=== PATIENT | male | born 1945 | race Caucasian/White ===

== ENCOUNTER → 2016-09-25 | Outpatient (CLI) | payer OTHER ==
[~2016-09-25] MED LIST: ASPI81TA28 PO; CARV3.122 PO; CLOP1TAB15 PO; DICL-201 PO; GABA-113 PO; GLIP-199 PO; LISI20TA3 PO; METF-383 PO; MULT-506 PO; PARO1TAB27 PO; RXC5 PO
== END | disposition home or self-care (01) ==
LOC: C.CTS 09:43
PROVIDERS: ATTEND Orthopaedic Surgery
DX: M19.011 Primary osteoarthritis, right shoulder (principal)

== ENCOUNTER 2016-10-25 06:05 | Inpatient (IN) | payer OTHER ==
--- NOTE | 2016-09-25 11:22 | PAT Medication Instructions ---
Service Date Sep 25, 2016. Current Home Medication List Aspirin (Aspirin Ec), 81 MG PO BID Carvedilol (Coreg), 3.125 MG PO QAM Clopidogrel (Plavix), 75 MG PO DAILY Diclofenac (Voltaren), 75 MG PO BID Gabapentin (Neurontin), 300 MG PO BID Glipizide (Glipizide Er), 1 TAB PO BID Lisinopril (Prinivil), 20 MG PO QAM Metformin Hcl (Glucophage), 850 MG PO BID Multivitamin (Multivitamin), 1 TAB PO QAM Paroxetine (Paxil), 20 MG PO QAM Medication Instructions For Your Scheduled Surgery - Check with surgeon for instructions: Diclofenac (Voltaren), 75 MG PO BID - Check with surgeon/prescribing physician for instructions: Clopidogrel (Plavix), 75 MG PO DAILY (check with vascular physician) Aspirin (Aspirin Ec), 81 MG PO BID - Hold the following medications 48 hours prior to surgery: Metformin Hcl (Glucophage), 850 MG PO BID - Hold the following medications the morning of surgery: Multivitamin (Multivitamin), 1 TAB PO QAM Glipizide (Glipizide Er), 1 TAB PO BID Lisinopril (Prinivil), 20 MG PO QAM - Take the following medications the morning of surgery with a sip of water: Paroxetine (Paxil), 20 MG PO QAM Gabapentin (Neurontin), 300 MG PO BID Carvedilol (Coreg), 3.125 MG PO QAM - Take the following medications as scheduled the night before surgery: Glipizide (Glipizide Er), 1 TAB PO BID Gabapentin (Neurontin), 300 MG PO BID If you have any questions please call us at [phone] (Jeanette Lawson PA-C) or [phone] or [phone]
--- NOTE | 2016-09-25 11:58 | DIAGNOSTIC IMAGING REPORT ---
CHEST PREADMISSION(PA/LAT) CLINICAL HISTORY: Preoperative evaluation. COMPARISON STUDY: No previous studies for comparison. FINDINGS: Lung volumes are normal. There is no pneumothorax or pleural effusion. Pulmonary vascularity is normal. No consolidation is identified. Cardiomediastinal silhouette is unremarkable. There may be a healed fracture of the anterior right second rib. There is chronic deformity of the mid shaft of the right clavicle. IMPRESSION: No acute cardiopulmonary findings. Electronically signed by: Jamie Conroy M.D. 09/25/2016 11:56 AM Dictated Date/Time: 09/25/2016 11:56 AM
[2016-09-25 13:03] LABS: URINE APPEARANCE CLEAR (CLEAR); URINE BILIRUBIN NEG (NEG); URINE COLOR YELLOW; URINE NITRITE NEG (NEG); URINE SPECIFIC GRAVITY 1.022 (1.000-1.030); UROBILINOGEN NEG (NEG)
[2016-09-25 13:14] LABS: CREATININE 1.3 mg/dl (0.60-1.40); PROTHROMBIN TIME (PATIENT) 10.4 SECONDS (9.0-12.0)
[2016-09-25 13:15] LABS: BUN/CREATININE RATIO 25.9 (10-20); CALCIUM 9.3 mg/dl (8.5-10.1)
[2016-09-25 13:18] LABS: MANUAL MICROSCOPIC REQUIRED? NO; REVIEW REQ? NO
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
[~2016-10-25] VITALS: Ht 182.9 cm; Wt 100.8 kg
[2016-10-25] VITALS (8 sets, daily range): BP systolic 93–174; BP diastolic 63–90; PULSE 73–91; TEMP 36.3–36.8; O2SAT 92–96; Ht 182.9 cm; Wt 100.8 kg
[~2016-10-25 06:05] MED LIST changes: +ACETAMINOPHEN 500 MG TAB PO SCH; +CEFAZOLIN 2000 MG/60 ML D5W 60 ML IV SCH; +FAMOTIDINE 20 MG TAB PO SCH; +GABAPENTIN 300 MG CAP PO SCH; +INSULIN REGULAR 6 UNITS in SYRINGE 5.94 ML IV SCH; +LACTATED RINGER'S 1000ML 1,000 ML IV SCH; +LACTATED RINGER'S 500 ML IV SCH; +ROPIVACAINE 5MG/ML 30 ML 150 MG, BUPIVACAINE/EPINEPHR 0.5% MPF 30 ML, KETOROLAC TROMETH... INFIL SCH; -RXC5 PO
--- NOTE | 2016-10-25 06:31 | History & Physical Bridge Note ---
H&P Re-Evaluation Bridge Note: I have examined the patient, reviewed the History & Physical and in the interval since the performance of the History & Physical I have noted the following changes of clinical significance: No changes noted
[2016-10-25] MEDS ORDERED: BUPIVACAINE 0.25% 30 ML VIAL ONE (06:36)
[2016-10-25] MEDS ORDERED: FENTANYL CITRATE INJ 50 MCG/1 ML 2 ML VIAL ONE (07:05)
[2016-10-25] MEDS ORDERED: MIDAZOLAM HCL 1 MG/ML 2ML VIAL ONE (07:05)
[2016-10-25] MEDS ORDERED: DEXAMETHASONE SOD INJ 4 MG/ML VIAL ONE (07:06)
[2016-10-25] MEDS ORDERED: ONDANSETRON INJ 2 MG/ML 2 ML VIAL ONE (07:06)
[2016-10-25] MEDS ORDERED: ROCURONIUM BROMIDE 10 MG/ML 5 ML VIAL ONE ×2 (07:06→08:55)
[2016-10-25] MEDS ORDERED: ETOMIDATE 2 MG/ML 20 ML VIAL IV ONE (07:06)
[2016-10-25] MEDS ORDERED: LIDOCAINE HCL 2% 2 ML VIAL (20MG/ML) ONE (07:06)
[2016-10-25] MEDS ORDERED: PROPOFOL IV EMULSION 10 MG/ML 20 ML VIAL IV ONE (07:06)
[2016-10-25] MEDS ORDERED: NURSING VERBAL MED ORDER ONE (07:15)
[2016-10-25] MEDS ORDERED: NovoLIN-R INSULIN PER UNIT CHARGE ONE (07:15)
[2016-10-25] MEDS ORDERED: BUPIVACAINE/EPINEPHRINE 0.5% MPF 1:200,000 30 ML VIAL ONE (07:45)
[2016-10-25] MEDS ORDERED: BACITRACIN 50000 UNIT VIAL ONE (07:45)
[2016-10-25] MEDS ORDERED: ORTHO JOINT ANESTHETIC ONE (07:50)
[2016-10-25] MEDS ORDERED: EpHEDrine SULFATE INJ 50 MG/ML AMP ONE (08:36)
[2016-10-25] MEDS ORDERED: EpHEDrine SULFATE INJ 50 MG/ML AMP IV PRN ×2 (08:45)
[2016-10-25] MEDS ORDERED: HYDROmorphone INJ 2 MG/ML SYR/VIAL IV PRN (08:45)
[2016-10-25] MEDS ORDERED: PHENYLEPHRINE 100MCG/ML 5ML SYR IV PRN (08:45)
[2016-10-25] MEDS ORDERED: ATROPINE SULFATE 0.1 MG/ML 5ML SYR IV PRN ×2 (08:45)
[2016-10-25] MEDS ORDERED: ONDANSETRON INJ 2 MG/ML 2 ML VIAL IV PRN ×2 (08:45→10:00)
[2016-10-25] MEDS ORDERED: NEOSTIGMINE METHYLSULFATE 5 MG/5 ML SYR ONE (09:31)
[2016-10-25] MEDS ORDERED: GLYCOPYRROLATE INJ 0.2 MG/ML VIAL ONE (09:31)
--- NOTE | 2016-10-25 09:54 | [facility] Post Operative Brief Note ---
Immediate Operative Summary Operative Date Oct 25, 2016. Pre-Operative Diagnosis Primary osteoarthritis of the right shoulder Post-Operative Diagnosis Same as preoperative diagnosis Procedure(s) Performed Right total shoulder arthroplasty Surgeon Dr. Shilo Banegas Rejoiner Surgeon(s) Anil Aquino PA-C Estimated Blood Loss 300 mL Findings as above Specimens Permanent specimens A: Right humeral head Complication(s) None Disposition Recovery Room / PACU
[2016-10-25] MEDS ORDERED: MAGNESIUM HYDROXIDE SUSP 30 ML UDC PO PRN (10:00)
[2016-10-25] MEDS ORDERED: SOD PHOSPHATE/SOD BIPHOSPHATE ENEMA 132 ML BTL PR PRN (10:00)
[2016-10-25] MEDS ORDERED: METOCLOPRAMIDE HCL INJ 5 MG/ML 2 ML VIAL IV PRN (10:00)
[2016-10-25] MEDS ORDERED: BISACODYL 10 MG SUPP PR PRN (10:00)
[2016-10-25] MEDS ORDERED: OXYCODONE HCL IR 5 MG TAB (IMMEDIATE RELEASE) PO PRN (10:00)
[2016-10-25] MEDS ORDERED: HYDROmorphone INJ 1 MG/ML SYR IV PRN (10:00)
[2016-10-25] MEDS ORDERED: NALOXONE HCL 0.4 MG/1 ML VIAL/CARP IV PRN (10:00)
[2016-10-25] MEDS ORDERED: ESMOLOL HCL 10 MG/ML 10 ML VIAL ONE (10:02)
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
--- NOTE | 2016-10-25 10:48 | DIAGNOSTIC IMAGING REPORT ---
RIGHT SHOULDER 2 VIEWS CLINICAL HISTORY: Postoperative examination. FINDINGS: 2 portable views of the right shoulder are obtained. A right shoulder arthroplasty is in near-anatomic alignment. No acute fracture is seen. There are expected postoperative changes overlying the right shoulder including a surgical drain, subcutaneous gas, and soft tissue swelling. Mild productive change is noted at the acromioclavicular joint. The visualized right lung parenchyma appears clear. IMPRESSION: Expected postoperative findings status post right shoulder orthoplasty. No acute fracture is seen. Electronically signed by: Choco Mittal M.D. 10/25/2016 10:46 AM Dictated Date/Time: 10/25/2016 10:45 AM
--- NOTE | 2016-10-25 12:27 | Anesthesiology Progress Note ---
Anesthesia Post Op Note Date & Time Oct 25, 2016 at 12:28 Vital Signs Pain Intensity: 0.0 Vital Signs Past 12 Hours Date Time Temp Pulse Resp B/P Pulse Ox O2 Delivery O2 Flow Rate FiO2 10/25/16 12:16 76 16 93/63 96 2.0 10/25/16 11:59 36.3 73 18 103/66 95 2.0 10/25/16 11:20 94 Nasal Cannula 2.0 10/25/16 11:20 94 Nasal Cannula 2.0 10/25/16 11:00 36.9 73 20 124/73 94 Nasal Cannula 2 10/25/16 10:53 36.9 72 20 123/51 96 Nasal Cannula 2 10/25/16 10:50 76 21 122/79 95 Nasal Cannula 2 10/25/16 10:40 74 23 101/87 98 Nasal Cannula 2 10/25/16 10:30 76 20 149/80 96 Mask 10 10/25/16 10:21 36.0 71 18 149/91 98 Mask 10 10/25/16 06:43 36.8 91 16 174/90 96 Room Air Notes Mental Status: alert / awake / arousable, participated in evaluation Pt Amnestic to Procedure: Yes Nausea / Vomiting: adequately controlled Pain: adequately controlled Airway Patency, RR, SpO2: stable & adequate BP & HR: stable & adequate Hydration State: stable & adequate Anesthetic Complications: no major complications apparent
[2016-10-25] MEDS: POTASSIUM CHLORIDE INJ 10 MEQ in SODIUM CHLORIDE 0.9% 1000ML 1,000 ML IV SCH ×2 (13:15→23:18)
[2016-10-25] MEDS: ACETAMINOPHEN IV 1,000 MG in EMPTY BAG 0 ML IV SCH ×2 (14:00→22:22)
--- NOTE | 2016-10-25 15:56 | Discharge Instructions ---
Discharge Instructions Admission Reason for Admission: Right Shoulder Pain, Degenerative Joint Disease Discharge Discharge Diagnosis / Problem: Right total shoulder Discharge Goals Goal(s): Decrease discomfort, Improve function Activity Recommendations Activity Limitations: as noted below Shower/Bathe: may shower/bathe in 3 days sling for 3 weeks, may shower on Friday, leave glue dressing in place until seen in office . Instructions / Follow-Up Instructions / Follow-Up in [address] Banegas Current Hospital Diet Patient's current hospital diet: Diabetes Type 2 Diet Discharge Diet Recommended Diet: Diabetes Type 2 Diet Procedures Procedures Performed: Right total shoulder arthroplasty Pending Studies Studies pending at discharge: no Medical Emergencies . Who to Call and When: Medical Emergencies: If at any time you feel your situation is an emergency, please call 911 immediately. . Non-Emergent Contact Non-Emergency issues call your: Surgeon Call Non-Emergent contact if: wound has increased drainage, wound has increased redness . "Provider Documentation" section prepared by Shilo Banegas. VTE Core Measure Inpt VTE Proph given/why not?: Treatment not indicated
[2016-10-25] MEDS: CEFAZOLIN IV 2,000 MG in DEXTROSE 5% 50ML 50 ML IV SCH ×2 (16:33→23:19)
[2016-10-25] MEDS: METFORMIN HCL 850 MG TAB PO SCH (18:07)
[2016-10-25] MEDS: KETOROLAC TROMETHAMINE 15 MG/ML VIAL IV. SCH ×2 (18:54→23:22)
[2016-10-25] MEDS ORDERED: SENNA 8.6 MG TAB PO SCH (21:00)
[2016-10-25] MEDS: DOCUSATE SODIUM 100 MG CAP PO SCH (21:02)
[2016-10-25] MEDS: ASPIRIN 81 MG ECTAB PO SCH (21:03)
[2016-10-25] MEDS: GABAPENTIN 300 MG CAP PO SCH (21:04)
[2016-10-25] MEDS: DICLOFENAC SOD EC 75 MG TABCR PO SCH (21:04)
[2016-10-25] MEDS ORDERED: GLUCOSE 40% GEL 15 GM TUBE PO PRN (23:45)
[2016-10-25] MEDS ORDERED: DEXTROSE 50% 50 ML SYR IV PRN (23:45)
[2016-10-25] MEDS ORDERED: GLUCOSE 10 TABS/TUBE PO PRN (23:45)
[2016-10-25] MEDS ORDERED: GLUCAGON FOR INJ 1 MG VIAL SQ PRN (23:45)
[2016-10-26] MEDS ORDERED: INSULIN GLARGINE PER UNIT 10 UNITS in SYRINGE 0 ML SC ONE
[2016-10-26] MEDS: INSULIN ASPART 100 UNITS/ML 3 ML PEN SC SCH ×3 (00:08→13:28)
[2016-10-26 03:51] VITALS: BP 114/71; PULSE 84; TEMP 36.5; O2SAT 93
[2016-10-26] MEDS: ACETAMINOPHEN IV 1,000 MG in EMPTY BAG 0 ML IV SCH (05:39)
[2016-10-26] MEDS: KETOROLAC TROMETHAMINE 15 MG/ML VIAL IV. SCH ×2 (05:40→12:51)
[2016-10-26 07:00] VITALS: BP 139/75; PULSE 70; TEMP 36.7; O2SAT 97
[2016-10-26 07:22] LABS: HEMATOCRIT 31.3 % (42-52); MEAN CELL VOLUME 99.7 fL (80-100); MEAN CORPUSCULAR HEMOGLOBIN 34.4 pg (25-34); MEAN CORPUSCULAR HGB CONC 34.5 g/dl (32-36); MEAN PLATELET VOLUME 12.6 fL (7.4-10.4); PLATELET COUNT 142 K/uL (130-400); RED BLOOD COUNT 3.14 M/uL (4.7-6.1); WHITE BLOOD COUNT 9.95 K/uL (4.8-10.8)
[2016-10-26 07:59] LABS: BUN/CREATININE RATIO 26.4 (10-20); CREATININE 1.1 mg/dl (0.60-1.40); POTASSIUM 4.2 mmol/L (3.5-5.1)
[2016-10-26] MEDS ORDERED: RXC5 PO (08:54)
[2016-10-26] MEDS ORDERED: PANTOprazole SOD 40 MG TAB PO SCH (09:00)
[2016-10-26] MEDS ORDERED: CLOPIDOGREL BISULFATE 75 MG TAB PO SCH (09:00)
[2016-10-26] MEDS ORDERED: LISINOPRIL 20 MG TAB PO SCH (09:00)
[2016-10-26] MEDS ORDERED: CARVEDILOL 3.125 MG TAB PO SCH (09:00)
[2016-10-26] MEDS ORDERED: MULTIVITAMIN TAB PO SCH ×2 (09:00)
[2016-10-26] MEDS ORDERED: PAROXETINE 20 MG TAB PO SCH (09:00)
[2016-10-26] MEDS: METFORMIN HCL 850 MG TAB PO SCH (09:11)
[2016-10-26] MEDS: DOCUSATE SODIUM 100 MG CAP PO SCH (09:12)
--- NOTE | 2016-10-26 09:12 | PROGRESS NOTE ---
DATE: 10/26/2016 DATE: 10/26/2016. CHIEF COMPLAINT: Status post right total shoulder arthroplasty postop day #1. PROGRESS: Mohit was seen and examined at bedside today. Overall, he is doing fairly well. He has some soreness in his shoulder, but not much pain. No acute events overnight. No complaints. PHYSICAL EXAMINATION: RIGHT SHOULDER: The dressing is clean and dry and the drain is to suction. He is wearing his sling as instructed. The radial, median and ulnar nerves were checked and intact at his wrist. His axillary nerve was not checked yet. LABORATORY DATA: He has an H\T\H today of 10.8 and 31.3. His glucose is 165. His vital signs are stable on room air. He is voiding on his own. IMPRESSION: Status post right total shoulder arthroplasty postop day #1. PLAN: At this point, he is doing as well as expected. His pain is controlled. The nursing staff will change the dressing and pull the drain. The therapist will see him this morning. He can be discharged to home.
[2016-10-26] MEDS: GABAPENTIN 300 MG CAP PO SCH (09:14)
[2016-10-26] MEDS: DICLOFENAC SOD EC 75 MG TABCR PO SCH (09:14)
[2016-10-26] MEDS: ASPIRIN 81 MG ECTAB PO SCH (09:14)
[2016-10-26] MEDS ORDERED: CARV3.122 PO (09:21)
--- NOTE | 2016-10-26 09:26 | Medical Consult ---
Consultation Date of Consultation: Oct 26, 2016. Attending Physician: Shilo Banegas DO Reason for Consultation: Medical Management History of Present Illness Pt is a 70 yo male with a h/o CAD s/p stent, HTN, depression, OA, AAA/PAD, heart murmur, hereditary hemochromatosis, and DMII who is here for right total shoulder arthroplasty. He is POD#1 and I was consulted for medical management. He is doing very well, pain is controlled. He denies any CP or SOB, no abd pain , he is eating breakfast and preparing for discharge. His glucose readings were elevated last night and he was given insulin SQ. Vitals have all been good. Past Medical/Surgical History CAD s/p stent HTN Depression OA AAA PAD s/p ?femoral artery stent Heart murmur/presumed valvular disease Hereditary hemochromatosis DMII Family History Siblings with HH Otherwise noncontributory Social History Smoking Status: Former Smoker Alcohol Use: occasionally (1-2 drinks per week) Marital Status: Housing Status: lives with significant other Allergies Coded Allergies: Morphine (Verified Adverse Reaction, Unknown, HALLUCINATIONS, 10/25/16) Home Medications Reported Home Medications Medications Dose Route/Sig Max Daily Dose Days Date Category Dose Instructions Oxycodone HCl 5 Mg Tab 5-10 Mg PO Q4H PRN 10/26/16 Rx Multivitamin (Multivitamins) Tab 1 Tab PO QAM 09/25/16 Reported Plavix (Clopidogrel Bisulfate) 75 Mg Tab 75 Mg PO DAILY 09/25/16 Reported Voltaren (Diclofenac Sodium) 75 Mg Tabcr 75 Mg PO BID 09/25/16 Reported WITH FOOD Prinivil (Lisinopril) 20 Mg Tab 20 Mg PO QAM 09/25/16 Reported Glucophage (Metformin Hcl) 850 Mg Tab 850 Mg PO BID 09/25/16 Reported Neurontin (Gabapentin) 300 Mg Cap 300 Mg PO BID 09/25/16 Reported Paxil (Paroxetine HCl) 20 Mg Tab 20 Mg PO QAM 09/25/16 Reported Coreg (Carvedilol) 3.125 Mg Tab 3.125 Mg PO QAM 09/25/16 Reported Glipizide Er (Glipizide) 10 Mg Tab 1 Tab PO BID 90 09/25/16 Reported Aspirin Ec (Aspirin) 81 Mg Tab 81 Mg PO BID 09/25/16 Reported Current Inpatient Medications Current Inpatient Medications Medications (Trade) Dose Ordered Sig/Michael Route Start Time Stop Time Status Last Admin Dose Admin Aspirin (Ecotrin Tab) 81 mg BID PO 10/25/16 21:00 11/24/16 20:59 10/25/16 21:03 81 MG Carvedilol (Coreg Tab) 3.125 mg QAM PO 10/26/16 09:00 11/25/16 08:59 Clopidogrel Bisulfate (plAVix TAB) 75 mg DAILY PO 10/26/16 09:00 11/25/16 08:59 Diclofenac Sodium (Voltaren Tab) 75 mg BID PO 10/25/16 21:00 11/24/16 20:59 10/25/16 21:04 75 MG Gabapentin (Neurontin Cap) 300 mg BID PO 10/25/16 21:00 11/24/16 20:59 10/25/16 21:04 300 MG Lisinopril (Zestril Tab) 20 mg QAM PO 10/26/16 09:00 11/25/16 08:59 Metformin HCl (Glucophage Tab) 850 mg BIDM PO 10/25/16 17:45 11/24/16 17:59 10/25/16 18:07 850 MG Multivitamins (Multivitamin Tab) 1 tab QAM PO 10/26/16 09:00 11/25/16 08:59 Paroxetine HCl (pAXil TAB) 20 mg QAM PO 10/26/16 09:00 11/25/16 08:59 Glipizide (GlipiZIDE EXTENDED REL TAB) 10 mg BIDM PO 10/25/16 17:45 11/24/16 17:59 10/25/16 18:07 10 MG Metoclopramide HCl (Reglan Inj) 10 mg Q6H PRN IV 10/25/16 10:00 11/24/16 09:59 Ondansetron HCl (Zofran Inj) 4 mg Q6H PRN IV 10/25/16 10:00 11/24/16 09:59 Pantoprazole Sodium 40 mg 40 mg QAM PO 10/26/16 09:00 11/25/16 08:59 Potassium Chloride/Sodium Chloride (KCl Inj/Nss 1000ml) 1,005 ml @ 100 mls/hr Q10H3M IV 10/25/16 13:00 3/19/17 12:59 10/25/16 23:18 100 MLS/HR Ketorolac Tromethamine (Toradol Inj) 15 mg Q6 IV. 10/25/16 18:00 10/27/16 17:59 10/26/16 05:40 15 MG Oxycodone HCl `1-2 TABS FOR PAIN `1 TAB... Q4H PRN PO 10/25/16 10:00 11/08/16 09:59 Acetaminophen/ Empty Bag (Ofirmev Iv/ Empty Iv Bag 100ml) 100 ml @ 400 mls/hr Q8 IV 10/25/16 14:00 10/26/16 13:59 10/26/16 05:39 400 MLS/HR Naloxone HCl (Narcan Inj) 0.1 mg Q2M PRN IV 10/25/16 10:00 11/24/16 09:59 Magnesium Hydroxide (Milk Of Magnesia Susp) 30 ml Q6H PRN PO 10/25/16 10:00 11/24/16 09:59 Bisacodyl (Dulcolax Supp) 10 mg DAILY PRN NM 10/25/16 10:00 11/24/16 09:59 Sodium Biphosphate/ Sodium Phosphate (Fleet Enema) 132 ml DAILY PRN NM 10/25/16 10:00 11/24/16 09:59 Senna (Senokot Tab) 17.2 mg HS PO 10/25/16 21:00 11/24/16 20:59 10/25/16 21:03 17.2 MG Docusate Sodium (coLACE CAP) 100 mg BID PO 10/25/16 21:00 11/24/16 20:59 10/25/16 21:02 100 MG Hydromorphone HCl (Dilaudid Inj) 1 mg Q2HWA PRN IV 10/25/16 10:00 11/08/16 09:59 Insulin Aspart (novoLOG ASPART) SLIDING SCALE G... ACHS SC 10/26/16 00:00 11/25/16 00:00 10/26/16 00:08 3 UNITS Glucose (Glucose 40% Gel) 15-30 GRAMS 15 GRAMS... UD PRN PO 10/25/16 23:45 11/24/16 23:44 Glucose (Glucose Chew Tab) 4-8 Tablets 4 Tabl... UD PRN PO 10/25/16 23:45 11/24/16 23:44 Dextrose (Dextrose 50% 50ML Syringe) 25-50ML OF 50% DW IV FOR... UD PRN IV 10/25/16 23:45 11/24/16 23:44 Glucagon (Glucagon Inj) 1 mg UD PRN SQ 10/25/16 23:45 11/24/16 23:44 Review of Systems Constitutional: No fever Eyes: No problem reported ENT: No problem reported Respiratory: No shortness of breath Cardiovascular: No chest pain Abdomen: No constipation, No nausea, No pain, No vomiting Musculoskeletal: + joint pain (right hsoulder minimal) Genitourinary - Male: No urinary retention Neurologic: No problem reported Psychiatric: No depression symptoms Endocrine: No problem reported Hematologic / Lymphatic: + problem reported (h/o HH requiring infrequent phlebotomies) Integumentary: No problem reported Allergic / Immunologic: No problem reported Physical Exam Date Time Temp Pulse Resp B/P Pulse Ox O2 Delivery O2 Flow Rate FiO2 10/26/16 07:45 Room Air 10/26/16 07:00 36.7 70 20 139/75 97 Room Air 10/26/16 03:51 36.5 84 16 114/71 93 Room Air 10/25/16 23:09 36.7 81 16 112/69 92 Room Air 10/25/16 20:55 Room Air 10/25/16 16:00 96 Nasal Cannula 2.0 10/25/16 14:32 91 16 106/69 96 2.0 10/25/16 13:20 36.4 76 18 103/63 96 Nasal Cannula 2.0 10/25/16 12:16 76 16 93/63 96 2.0 10/25/16 11:59 36.3 73 18 103/66 95 2.0 10/25/16 11:20 94 Nasal Cannula 2.0 10/25/16 11:20 94 Nasal Cannula 2.0 10/25/16 11:00 36.9 73 20 124/73 94 Nasal Cannula 2 10/25/16 10:53 36.9 72 20 123/51 96 Nasal Cannula 2 10/25/16 10:50 76 21 122/79 95 Nasal Cannula 2 10/25/16 10:40 74 23 101/87 98 Nasal Cannula 2 2/17/17 10:30 76 20 149/80 96 Mask 10 10/25/16 10:21 36.0 71 18 149/91 98 Mask 10 General Appearance: WD/WN, no apparent distress Head: normocephalic, atraumatic Eyes: normal inspection, sclerae normal ENT: hearing grossly normal, pharynx normal Neck: supple, thyroid normal, no carotid bruits, trachea midline Respiratory/Chest: lungs clear, normal breath sounds, no respiratory distress, no accessory muscle use Cardiovascular: regular rate, rhythm, no gallop, normal peripheral pulses, + systolic murmur (3/6 NANCY heard best at LLSB and apex), + pertinent finding ( trace pitting edema legs bilat, chronic venous stasis changes bilat) Abdomen/GI: normal bowel sounds, non tender, soft, no organomegaly Back: normal inspection Extremities/Musculoskelatal: + pertinent finding (right arm in shoulder sling, dressing in place c/d/i, able to move fingers, sensation intact) Neurologic/Psych: alert, normal mood/affect, oriented x 3 Skin: normal color, warm/dry Laboratory Results Last 24 Hours Test 10/25/16 10:22 10/25/16 12:15 10/25/16 17:02 10/25/16 20:59 Bedside Glucose 232 mg/dl 254 mg/dl 250 mg/dl 277 mg/dl Test 10/26/16 00:04 10/26/16 05:58 10/26/16 06:25 10/26/16 07:59 Bedside Glucose 252 mg/dl 171 mg/dl 165 mg/dl White Blood Count 9.95 K/uL Red Blood Count 3.14 M/uL Hemoglobin 10.8 g/dL Hematocrit 31.3 % Mean Corpuscular Volume 99.7 fL Mean Corpuscular Hemoglobin 34.4 pg Mean Corpuscular Hemoglobin Concent 34.5 g/dl RDW Standard Deviation 47.4 fL RDW Coefficient of Variation 13.1 % Platelet Count 142 K/uL Mean Platelet Volume 12.6 fL Sodium Level 138 mmol/L Potassium Level 4.2 mmol/L Chloride Level 105 mmol/L Carbon Dioxide Level 22 mmol/L Anion Gap 11.0 mmol/L Blood Urea Nitrogen 29 mg/dl Creatinine 1.10 mg/dl Est Creatinine Clear Calc Drug Dose 75.7 ml/min Estimated GFR () 77.9 Estimated GFR (Non- 67.2 BUN/Creatinine Ratio 26.4 Random Glucose 162 mg/dl Calcium Level 8.0 mg/dl Assessment & Plan Pt is a 70 yo male with a h/o CAD s/p stent, HTN, depression, OA, AAA/PAD, heart murmur, hereditary hemochromatosis, and DMII, here for right total shoulder arthroplasty. TSA-Right: doing very well POD#1 -being discharged to home today -f/u with Ortho as planned -DVT proph with ASA 81mg bid -pain control CAD, HTN, Heart murmur, AAA-stable, PAD- doing very well, no signs of ACS perioperatively, vitals normal -continue home meds of lisinopril, Coreg should be changed to bid (listed as qAM ), ASA, Plavix -no statin listed-there may be a reason for this, pt unsure -followw with vascular routinely for AAA and no surgery indicated as per pt at this time -sounds like MR on exam with murmur, last ECHO 3-4 months ago and follows with Cardiology routinely in [place] DMII-glucose has improved with SQ insulin -discharge to home on continued glipizide and f/u with PCP HH- hgb 10.8, certainly not needing transfusion or phlebotomy at this time Depression-stable for years on Paxil -continue Paxil Proph- DVT ASA bid Dispo-to home today FULL CODE Thank you for this consultation. Additional Copies To Cindy Torres D.O.
[2016-10-26 12:39] VITALS: BP 139/75; PULSE 70; TEMP 36.7; O2SAT 97
--- NOTE | 2016-10-28 00:52 | DISCHARGE SUMMARY ---
DISCHARGE DIAGNOSIS: Primary osteoarthritis of the right shoulder. PROCEDURE: Reversed right total shoulder arthroplasty on 10/25/[address] Shilo Banegas. DISCHARGE INSTRUCTIONS: 1. Oxycodone 5-10 mg every 4 hours as needed for pain. 2. Coreg 3.125 mg twice a day. 3. Aspirin 81 mg twice a day. 4. Plavix 75 mg daily. 5. Voltaren 75 mg twice a day. 6. Neurontin 300 mg twice a day. 7. Glipizide 10 mg twice a day. 8. Prinivil 20 mg daily. 9. Glucophage 850 mg twice a day. 10. Daily multivitamin. 11. Paxil 20 mg daily. 12. January shower on Friday. 13. Right arm sling for 3 weeks. 14. Follow up with Dr. Banegas in 2 weeks. 15. Call the office of Dr. Banegas with any questions or concerns. HOSPITAL COURSE: Mohit is a pleasant 70-year-old male who presented to my office with chronic right shoulder pain. X-rays and clinical examination were diagnostic for primary osteoarthritis of the right shoulder. After failing conservative treatment, he elected to undergo a right total shoulder arthroplasty. On 10/25/2016 he arrived at [facility] and underwent a right shoulder arthroplasty without complications. He had a general anesthetic and a right interscalene nerve block. Postoperatively, he was discharged to general orthopedic floor. His hospital course was uneventful. On postop day #1, his H\T\H was stable at 10.8 and 31.3. He worked well with physical therapy. The dressing was changed, the drain was pulled and he was subsequently discharged to home with the above instructions.
== END 2016-10-26 13:45 | disposition home or self-care (01) | DRG 483 ==
LOC: ENRESERV → ENRESERVTM → ENRESERVDT → C.ACU 06:05 → C.MSN 06:35
PROVIDERS: ADMIT Orthopaedic Surgery; ATTEND Orthopaedic Surgery
PROC: 0RRJ0JZ Replacement of Right Shoulder Joint with Synthetic Substitute, Open Approach (ICD-10-PCS; principal; 2016-10-25 08:20)
DX: M19.011 Primary osteoarthritis, right shoulder (principal); E11.9 Type 2 diabetes mellitus without complications; I10 Essential (primary) hypertension; I25.10 Atherosclerotic heart disease of native coronary artery without angina pectoris; I71.4 Abdominal aortic aneurysm, without rupture; F32.9 Major depressive disorder, single episode, unspecified; I73.9 Peripheral vascular disease, unspecified; Z87.891 Personal history of nicotine dependence; Z79.899 Other long term (current) drug therapy